=== PATIENT | male | born 1985 | race Caucasian/White ===

== ENCOUNTER → 2024-04-09 | Outpatient (CLI) | payer OTHER | LOC: M RAD 16:53 | PROVIDERS: ATTEND Otolaryngology Otolaryngology/Facial Plastic Surgery | DX: J34.2 Deviated nasal septum (principal); M95.0 Acquired deformity of nose; S02.2XXD Fracture of nasal bones, subsequent encounter for fracture with routine healing; J34.89 Other specified disorders of nose and nasal sinuses; Y93.9 Activity, unspecified; Y92.9 Unspecified place or not applicable ==